=== PATIENT | male | born 1945 | race American Indian/Alaskan Native ===

== ENCOUNTER 2019-03-06 07:19 | Day surgery (SDC) | payer BC, MEDICARE ==
[~2019-03-06] VITALS: Ht 172.7 cm; Wt 79.8 kg
[2019-03-06 07:33] VITALS: BP 114/64
[2019-03-06] MEDS ORDERED: albumin 25% 100mL bottle x 1 IV PRN (07:45)
[2019-03-06] MEDS ORDERED: TELM80TA2 PO (07:56)
[2019-03-06] MEDS ORDERED: ROSU10TA2 PO (07:56)
[2019-03-06] MEDS ORDERED: HYDR25TA4 PO (07:56)
[2019-03-06] MEDS ORDERED: IBUP-1985 PO (07:56)
[2019-03-06] MEDS ORDERED: ASPI-1265 PO (07:56)
[2019-03-06] MEDS ORDERED: lidocaine patch TOP (07:56)
[2019-03-06] MEDS ORDERED: FLO0.4C PO (07:56)
[2019-03-06 08:21] VITALS: BP 135/114
[2019-03-06 08:30] VITALS: BP 135/59
[2019-03-06 08:45] VITALS: BP 140/56
[2019-03-06 09:00] VITALS: BP 120/65
[2019-03-06 09:15] VITALS: BP 147/72
[2019-03-06 09:33] LABS: ALBUMIN,BODY FLUID 2.3 G/DL
== END 2019-03-06 09:55 | disposition home or self-care (01) ==
LOC: SSTAY O 07:19
PROVIDERS: ATTEND Radiology Diagnostic Radiology
DX: J90 Pleural effusion, not elsewhere classified (principal); E78.5 Hyperlipidemia, unspecified; I10 Essential (primary) hypertension; N40.0 Benign prostatic hyperplasia without lower urinary tract symptoms; M19.90 Unspecified osteoarthritis, unspecified site; Z98.890 Other specified postprocedural states; Z72.89 Other problems related to lifestyle; Z79.82 Long term (current) use of aspirin; Z79.899 Other long term (current) drug therapy
CPT/HCPCS: 32555; 71045; 82042; 82945; 83615; 84157; 87070

== ENCOUNTER 2019-04-02 08:03 | Day surgery (SDC) | payer BC, MEDICARE ==
[2019-04-02] VITALS (11 sets, daily range): BP systolic 92–144; BP diastolic 53–71
[~2019-04-02] VITALS: Ht 177.8 cm; Wt 78.7 kg
[~2019-04-02 08:03] MED LIST: ASPI-1265 PO; FLO0.4C PO; HYDR25TA4 PO; IBUP-1985 PO; ROSU10TA2 PO; TELM80TA2 PO; lidocaine patch TOP
[2019-04-02] MEDS ORDERED: albumin 25% 100mL bottle x 1 IV PRN (08:25)
[2019-04-02] MEDS ORDERED: normal saline 1000ml 1,000 ML IV PRN (08:30)
[2019-04-02] MEDS ORDERED: DEXT15CA28 PO (08:31)
[2019-04-02] MEDS ORDERED: ASCO125T PO (08:31)
[2019-04-02] MEDS ORDERED: acetaminophen 325mg tablet PO PRN (09:10)
== END 2019-04-02 10:10 | disposition home or self-care (01) ==
LOC: SSTAY O 08:03
PROVIDERS: ATTEND Radiology Diagnostic Radiology
DX: J90 Pleural effusion, not elsewhere classified (principal); R14.0 Abdominal distension (gaseous); E78.5 Hyperlipidemia, unspecified; I10 Essential (primary) hypertension; N40.0 Benign prostatic hyperplasia without lower urinary tract symptoms; M19.90 Unspecified osteoarthritis, unspecified site; Z98.890 Other specified postprocedural states; Z72.89 Other problems related to lifestyle; Z79.899 Other long term (current) drug therapy; Z79.82 Long term (current) use of aspirin
CPT/HCPCS: 32555; 71045; 76705; J7030; C1729